=== PATIENT | male | born 1995 | race Caucasian/White ===

== ENCOUNTER → 2018-11-20 18:52 | Emergency (ER) | payer OTHER ==
--- NOTE | 2018-11-20 19:39 | ED ---
Upper Extremity Pain - HPI Summary HPI Summary: 23 year old male presents to the emergency department for pain in his left 4th digit. Pt was rock climbing an hour prior to arrival when her heard a "pop" in his finger. He states his pain is dull and achy at 1-2/10. Pt is using ice to help with the pain. He denies any loss of ROM, swelling, redness, numbness, and bleeding. - History of Current Complaint Chief Complaint: EDExtremityUpper Stated Complaint: INJURED MY FINGER PER PT Time Seen by Provider: 11/20/18 19:24 Hx Obtained From: Patient - Allergies/Home Medications Allergies/Adverse Reactions: Allergies Allergy/AdvReac Type Severity Reaction Status Date / Time No Known Allergies Allergy Verified 11/20/18 18:57 PMH/Surg Hx/FS Hx/Imm Hx Previously Healthy: Yes Infectious Disease History: No Infectious Disease History: Denies: Traveled Outside the [place] in Last 30 Days - Family History Known Family History: Positive: Non-Contributory - Social History Occupation: Student Alcohol Use: Rare Hx Substance Use: No Smoking Status (MU): Never Smoked Tobacco Review of Systems Constitutional: Negative Negative: Fever, Chills Cardiovascular: Negative Negative: Palpitations, Chest Pain Respiratory: Negative Negative: Shortness Of Breath Gastrointestinal: Negative Negative: Abdominal Pain, Diarrhea, Nausea Negative: Arthralgia, Myalgia, Decreased ROM, Edema Skin: Negative Negative: Rash, Bruising Negative: Headache, Weakness, Paresthesia, Numbness All Other Systems Reviewed And Are Negative: Yes Physical Exam Triage Information Reviewed: Yes Vital Signs On Initial Exam: Initial Vitals Temp Pulse Resp BP Pulse Ox 97.3 F 68 18 134/81 98 11/20/18 18:55 11/20/18 18:55 11/20/18 18:55 11/20/18 18:55 11/20/18 18:55 Vital Signs Reviewed: Yes Appearance: Positive: Well-Appearing, No Pain Distress, Well-Nourished Skin: Positive: Warm, Skin Color Reflects Adequate Perfusion, Dry Head/Face: Positive: Normal Head/Face Inspection Eyes: Positive: Normal, EOMI ENT: Positive: Normal ENT inspection, Hearing grossly normal Respiratory/Lung Sounds: Positive: Clear to Auscultation, Breath Sounds Present Cardiovascular: Positive: Normal, RRR, Pulses are Symmetrical in both Upper and Lower Extremities Musculoskeletal: Positive: Strength/ROM Intact, Other - Tenderness and pain with resistence in left 4th proximal phalanx Neurological: Positive: Normal, Sensory/Motor Intact - Upper extremities bilaterally, Alert, Oriented to Person Place, Time Psychiatric: Positive: Normal, Affect/Mood Appropriate Diagnostics - Vital Signs Vital Signs Temp Pulse Resp BP Pulse Ox 11/20/18 18:55 97.3 F 68 18 134/81 98 - Laboratory Lab Statement: Any lab studies that have been ordered have been reviewed, and results considered in the medical decision making process. Course/Dx - Course Course Of Treatment: Pt presents with left ring finger pain after hearing a "pop " while rock climbing. He states he has mild pain but no loss of ROM, numbness, swelling, and bleeding. His exam reveals tenderness and increased pain with resistence on the left 4th proximal phalanx flexor tendon c/w A2 miriam injury. Pt instructed to apply ice frequently, take ibuprofen as needed for pain, and refrain from any activity that causes increased pain. He was referred to Dr. Orlando, hand surgeon, and hand physical therapy for further treatment. Pt to follow up with any new/worsening symptoms. Assessment/Plan: Patient was seen in conjunction with the physician librarian assistant student. All history, physical and medical decision-making represent my work. - Diagnoses Differential Diagnosis/HQI/PQRI: Positive: Contusion, Fracture (Closed), Strain , Sprain, Other - Tendon rupture, A2 miriam injury Provider Diagnoses: Other injury of flexor muscle, fascia and tendon of left ring finger at wrist and hand level, initial encounter Discharge - Sign-Out/Discharge Documenting (check all that apply): Patient Departure Patient Received Moderate/Deep Sedation with Procedure: No - Discharge Plan Condition: Improved Disposition: HOME Patient Education Materials: Tendon Rupture (ED) Referrals: [facility] [Provider Group] Ryan Keane MD [Medical Doctor] - Additional Instructions: You seem to have an A2 miriam injury in your left ring finger. Apply ice, use ibuprofen as needed for pain, and avoid any activity that causes discomfort to the finger. Follow up with Dr. Keane and hand physical therapy. Return with any new/worsening symptoms. - Billing Disposition and Condition Condition: IMPROVED Disposition: Home - Attestation Statements Document Initiated by Scribe: No
[2018-11-20 19:56] VITALS: BP 121/67
== END | disposition home or self-care (01) ==
LOC: ED 18:52
DX: S56.10 Unspecified injury of flexor muscle, fascia and tendon of other and unspecified finger at forearm level (principal); X58.XXXA Exposure to other specified factors, initial encounter; Y93.31 Activity, mountain climbing, rock climbing and wall climbing; Y92.9 Unspecified place or not applicable; Y99.8 Other external cause status
CPT/HCPCS: 99282

== ENCOUNTER 2019-09-15 22:17 | Inpatient (IN) | payer OTHER ==
[2019-09-15] MEDS ORDERED: Tetan/Diph/Pertus SYR(Tdap)* 0.5 ML SYR(BOOSTRIX) use SYR contains LATEX IM ONE (22:38)
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
[2019-09-15 23:00] LABS: ABS Eosinophils 0.1 10^3/ul (0-0.6); ABS Lymphocytes 1.5 10^3/ul (1.0-4.8); ABS Monocytes 0.6 10^3/ul (0-0.8); ABS Neutrophils 10.4 10^3/ul (1.5-7.7); Eosinophil % 0.5 %; Hematocrit 46 % (42-52); Hemoglobin 15.8 g/dL (14.0-18.0); Lymphocyte % 11.8 %; Mean Corpuscular HGB Conc 34 g/dL (31-36); Mean Corpuscular Hemoglobin 28 pg (27-31); Mean Corpuscular Volume 82 fL (80-94); Mean Platelet Volume 10.4 fL (7.4-10.4); Platelet Count 161 10^3/uL (150-450); Red Blood Count 5.62 10^6 /uL (4.18-5.48); Red Cell Distribution Width 13 % (10-15); White Blood Count 12.6 10^3/uL (3.5-10.8)
[2019-09-15 23:18] LABS: ALT 25 U/L (7-52); AST 22 U/L (13-39); Albumin 4.6 g/dL (3.2-5.2); Albumin/Globulin Ratio 1.8 (1-3); Alkaline Phosphatase 68 U/L (34-104); Anion Gap 7 mmol/L (2-11); BUN/Creatinine Ratio 10.2 (8-20); Blood Urea Nitrogen 9 mg/dL (6-24); CO2 Carbon Dioxide 27 mmol/L (22-32); Calcium 9.5 mg/dL (8.6-10.3); Chloride 105 mmol/L (101-111); EGFR African American 127.7 (>60); EGFR Non-African American 105.5 (>60); Globulin 2.5 g/dL (2-4); Glucose 131 mg/dL (70-100); Potassium 3.9 mmol/L (3.5-5.0); Sodium 139 mmol/L (135-145); Total Protein 7.1 g/dL (6.4-8.9)
[2019-09-15 23:27] LABS: Acetaminophen < 15 mcg/mL; Alcohol < 10 mg/dL (<10); Salicylate < 2.50 mg/dL (<30)
[2019-09-15 23:41] LABS: TSH (Thyroid Stimulating Horm) 1.76 mcIU/mL (0.34-5.60)
[2019-09-15] MEDS ORDERED: Iohexol 300* (CONTRAST) 10 ML SDV IV ONE (23:44)
[2019-09-16 00:09] LABS: Urine Benzodiazepine Screen None Detected (None Detect); Urine Opiates Screen None Detected (None Detect)
[2019-09-16 00:49] LABS: Urine Appearance Clear; Urine Bilirubin Negative (Negative); Urine Blood 1+ (Negative); Urine Color Straw; Urine Glucose Negative (Negative); Urine Ketones Negative (Negative); Urine Nitrite Negative (Negative); Urine Protein Negative (Negative); Urine Specific Gravity 1.006 (1.010-1.030); Urine Urobilinogen Negative (Negative)
[2019-09-16 00:51] LABS: Urine Bacteria Absent (Absent); Urine Red Blood Cell Trace(0-2/hpf) (Absent); Urine White Blood Cell Trace(0-5/hpf) (Absent)
[2019-09-16] MEDS ORDERED: Al Hydrox/Mg Hydrox/Simet LIQ* 30 ML UDC PO PRN (05:24)
[2019-09-16] MEDS ORDERED: Acetaminophen TAB* 325 MG PO PRN (05:24)
[2019-09-16] MEDS: Vitamin THERAPEUTIC TAB PO SCH (10:32)
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
[2019-09-16] MEDS: Escitalopram * 10 MG TAB PO SCH (16:31)
[2019-09-17 07:22] LABS: HDL Cholesterol 39.2 mg/dL
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
[2019-09-17] MEDS: Escitalopram * 10 MG TAB PO SCH (08:52)
[2019-09-17] MEDS: Vitamin THERAPEUTIC TAB PO SCH (08:52)
[2019-09-17] MEDS ORDERED: Influenza VAC *QUAD* 2019-20* 0.5 ML SYRINGE IM ONE (09:00)
--- NOTE | 2019-09-17 12:56 | PN ---
BSU: Group Therapy Note - Service Type Service Type: 10203 Group Psychotherapy - Cognitive Behavioral Group Therapy ( CBT):Patient was attentive and participatory in CBT programming this morning, and remained in good behavioral control. Patient expressed positive insights regarding relevant treatment interventions and goals.
--- NOTE | 2019-09-17 16:17 | PN ---
BSU: Group Therapy Note - Service Type Service Type: [id number] Group Psychotherapy - Medication Education Group: Patient attended group and presented with flat affect that did not vary with discussion. Although responsive to direct prompts to respond to questions, patient did not engage in spontaneous conversation.
--- NOTE | 2019-09-18 08:41 | PN ---
Subjective - Subjective Date of Service: 09/18/19 Service Type: 26406 Hosp care 35 min high complexity Subjective: Nursing Report: Patient was visible on unit, no behavioral incidents. Slept overnight. He is attending group activities. CC: "I spoke to my mother" Patient was seen and evaluated today. The patient reported he feels safe on the unit and is interacting with peers. He reported having adequate appetite and sleep. The patient reports attending day groups. Per nursing no behavioral issues or overnight events reported. Patient reported that he is tolerating medications without side effects. Patient plans to work on school work over the weekend and coming up with a safety plan and support person he can contact in times of need. He changed the wound dressing and denied complications pain, fever, nausea, chills. Patient felt reassured to learn that his brother also takes lexapro and had a good response from it. Objective - General Observations Appearance: Neat Appears Stated Age: Yes Stature: Tall Posture: Slumped Eye Contact: Average Behavior/Activity: Slowed - Interaction Observations Attitude Towards Examiner: Cooperative Stated Mood: Dysphoric Affect: Flat Speech Pattern/Tone: Quiet Volume Thought Process: Coherent Perception: WNL Thought Content: Self-Deprecatory Thought Process: Lethality: Passive Wish Hallucination Type: Denies Delusion Type: Denies - Cognitive Function Orientation: A&O x 4 Level of Consciousness: Awake Cognition: WNL - Medication Compliance Cooperative with Inpatient Medication Regimen: Yes - Group Participation Participates in Group Activities: Yes Assessment - Assessment Merits Inpatient Hospitalization: For Immediate Safety Clinical Impression: 24 year old male with a history of depression presented to the emergency department following a suicide attempt by stabbing himself in the abdomen with a knife and was admitted to the BSU at [facility]. Plan - Plan Treatment Plan: Name: RAEGAN ALEXANDER Birthdate: 1995 [id number] #Q30 minute observation with staff pass and computer access. # The patient requires psychiatric inpatient admission at this time to assure safety, receive treatment and work toward stabilization. # Collaboration with Automobile Bumper Straightener Charis Ahumada #Patient is high risk for suicide given most recent suicide attempt and given other suicide attempts in the past have gone without acute intervention or treatment #Goals before discharge include: Decrease and eliminate suicidal ideation # Continue Lexapro 20mg daily # Patient to work on creating a plan to avoid isolating himself from others in time of stress and identifying a safety support person # Patient plans to return to school following discharge Tentative Discharge: Next Continued Medication Management: Continue Outpt Medication Medications: Current Medications Acetaminophen (Tylenol Tab*) 650 mg PO Q4H PRN PRN Reason: PAIN or TEMP > 101 F Al Hydrox/Mg Hydrox/Simethicone (Maalox Plus*) 30 ml PO Q4H PRN PRN Reason: INDIGESTION Escitalopram Oxalate (Lexapro *) 20 mg PO DAILY [facility] Multivitamins (Theragran Tab*) 1 tab PO DAILY [facility] Last Admin: 09/17/19 08:52 Dose: 1 tab - Discharge Plan Discharge Plan: Inpatient Hospitalization
[2019-09-18] MEDS: Vitamin THERAPEUTIC TAB PO SCH (08:48)
[2019-09-18] MEDS: Escitalopram * 20 MG TABLET PO SCH (08:48)
[2019-09-19] MEDS: Vitamin THERAPEUTIC TAB PO SCH (09:23)
[2019-09-19] MEDS: Escitalopram * 20 MG TABLET PO SCH (09:23)
[2019-09-20] MEDS: Vitamin THERAPEUTIC TAB PO SCH (07:25)
[2019-09-20] MEDS: Escitalopram * 20 MG TABLET PO SCH (07:25)
--- NOTE | 2019-09-20 15:28 | PN ---
Subjective - Subjective Date of Service: 09/20/19 Subjective: Pravin endorses improving mood, passive wish and urges for sib, he contracts for safety, He complains of GI pain, bloating ad loose stools that he attributes to prescribed Lexapro. He comments that he has gotten a lot of school work done today. Per staff, he remains adherent to unit's routines. Objective - General Observations Appearance: Neat Appears Stated Age: Yes Stature: WNL Posture: WNL Eye Contact: Average Behavior/Activity: WNL - Interaction Observations Attitude Towards Examiner: Cooperative Stated Mood: Dysphoric Affect: Restricted Speech Pattern/Tone: Clear, Appropriate, Normal Volume Thought Process: Coherent Perception: WNL Thought Content: WNL Thought Process: Lethality: Passive Wish Hallucination Type: None Delusion Type: None - Cognitive Function Orientation: A&O x 4 Level of Consciousness: Alert Cognition: WNL Estimated Intelligence: Normal Judgment Within Normal Limits: Yes - Medication Compliance Cooperative with Inpatient Medication Regimen: Yes - Group Participation Participates in Group Activities: Yes Assessment - Assessment Merits Inpatient Hospitalization: For Ongoing Evaluation, Consolidate Improvements, For Discharge Planning Clinical Impression: 24 year old male with a history of depression presented to the emergency department following a suicide attempt by stabbing himself in the abdomen with a knife and was admitted to the BSU at [facility]. He is stabilizing in this structured setting. Plan - Plan Treatment Plan: Name: PRAVIN ALEXANDER Birthdate: 1995 [id number] #Q30 minute observation with staff pass and computer access. # The patient requires psychiatric inpatient admission at this time to assure safety, receive treatment and work toward stabilization. # Collaboration with Web Merchandiser Charis Ahumada #Patient is high risk for suicide given most recent suicide attempt and given other suicide attempts in the past have gone without acute intervention or treatment #Goals before discharge include: Decrease and eliminate suicidal ideation # Continue Lexapro 20mg daily # Patient to work on creating a plan to avoid isolating himself from others in time of stress and identifying a safety support person # Patient plans to return to school following discharge Tentative Discharge: Next Medications: Current Medications Acetaminophen (Tylenol Tab*) 650 mg PO Q4H PRN PRN Reason: PAIN or TEMP > 101 F Last Admin: 09/19/19 09:24 Dose: 650 mg Al Hydrox/Mg Hydrox/Simethicone (Maalox Plus*) 30 ml PO Q4H PRN PRN Reason: INDIGESTION Escitalopram Oxalate (Lexapro *) 20 mg PO DAILY [facility] Last Admin: 09/20/19 07:25 Dose: 20 mg Multivitamins (Theragran Tab*) 1 tab PO DAILY [facility] Last Admin: 09/20/19 07:25 Dose: 1 tab - Discharge Plan Discharge Plan: Outpatient Follow Up Outpatient Program: [facility]
--- NOTE | 2019-09-21 08:53 | PN ---
Subjective - Subjective Date of Service: 09/21/19 Service Type: 31326 Hosp care 35 min high complexity Subjective: Nursing Report: Patient was visible on unit, no behavioral incidents. Slept overnight. He is attending some group activities. CC: "I dont want to feel like a burden" Patient was seen and evaluated today. The patient reported that designating a person he can contact in times of stress makes him feel like a burden to others. He noted that the safety plans he created in the past failed and plans to make a safety plan and explain how it is different. 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 Patient reported that he learned in group that when he hurts himself that he hurts others that care about him. He reported having adequate appetite and sleep. The patient reports attending day groups. Per nursing no behavioral issues or overnight events reported. Patient reported that he is tolerating medications without side effects. Objective - General Observations Appearance: Neat Appears Stated Age: Yes Stature: Thin, Tall Posture: WNL Eye Contact: Average Behavior/Activity: Slowed - Interaction Observations Attitude Towards Examiner: Cooperative Stated Mood: Dysphoric Affect: Restricted Speech Pattern/Tone: Normal Volume Thought Process: Coherent Perception: WNL Thought Content: Self-Deprecatory Thought Process: Lethality: Passive Wish Hallucination Type: Denies Delusion Type: Denies - Cognitive Function Orientation: A&O x 4 Level of Consciousness: Awake - Medication Compliance Cooperative with Inpatient Medication Regimen: Yes - Group Participation Participates in Group Activities: Yes Assessment - Assessment Merits Inpatient Hospitalization: For Immediate Safety Clinical Impression: 24 year old male with a history of depression presented to the emergency department following a suicide attempt by stabbing himself in the abdomen with a knife and was admitted to the BSU at [facility]. He is stabilizing in this structured setting. Plan - Plan Treatment Plan: Name: RAEGAN ALEXANDER Birthdate: 1995 [id number] #Q30 minute observation with staff pass and computer access. # The patient requires psychiatric inpatient admission at this time to assure safety, receive treatment and work toward stabilization. # Collaboration with Furniture Decals Inspector Charis Ahumada #Patient is high risk for suicide given most recent suicide attempt and given other suicide attempts in the past have gone without acute intervention or treatment # Continue Lexapro 20mg daily # Start Wellbutrin 150mg daily # Patient plans to create safety plan and identify how his previous plan is different and the reasons why it failed # Patient to work on creating a plan to avoid isolating himself from others in time of stress and identifying steps # Patient has history of SIB to relieve tension # Patient plans to return to school following discharge #Goals before discharge include: Decrease and eliminate suicidal ideation Tentative Discharge: Next Continued Medication Management: Continue Outpt Medication Medications: Current Medications Acetaminophen (Tylenol Tab*) 650 mg PO Q4H PRN PRN Reason: PAIN or TEMP > 101 F Last Admin: 09/19/19 09:24 Dose: 650 mg Al Hydrox/Mg Hydrox/Simethicone (Maalox Plus*) 30 ml PO Q4H PRN PRN Reason: INDIGESTION Escitalopram Oxalate (Lexapro *) 20 mg PO DAILY [facility] Last Admin: 09/20/19 07:25 Dose: 20 mg Multivitamins (Theragran Tab*) 1 tab PO DAILY [facility] Last Admin: 09/20/19 07:25 Dose: 1 tab - Discharge Plan Discharge Plan: Inpatient Hospitalization Outpatient Program: Counseling/Psych Services at [place]
[2019-09-21] MEDS: Vitamin THERAPEUTIC TAB PO SCH (09:38)
[2019-09-21] MEDS: Escitalopram * 20 MG TABLET PO SCH (09:38)
[2019-09-21] MEDS: BuPROPion XL* 150 MG TAB.XL PO SCH (13:48)
[2019-09-22] MEDS: BuPROPion XL* 150 MG TAB.XL PO SCH (09:24)
[2019-09-22] MEDS: Escitalopram * 20 MG TABLET PO SCH (09:25)
[2019-09-22] MEDS: Vitamin THERAPEUTIC TAB PO SCH (09:25)
--- NOTE | 2019-09-22 09:56 | PN ---
Subjective - Subjective Date of Service: 09/22/19 Service Type: 34441 Hosp care 35 min high complexity Subjective: Nursing Report: Patient was visible on unit, no behavioral incidents. Slept overnight. He is attending group activities. CC: "I am okay" Patient was seen and evaluated today. The patient reported he felt uncomfortable about seeing fight between another peer on the unit. He reported having adequate appetite and sleep. The patient reports attending day groups. Per nursing no behavioral issues or overnight events reported. Patient reported attempting to masturbate and had a delayed orgasm after taking medication. Objective - General Observations Appearance: Neat Appears Stated Age: Yes Stature: WNL Posture: WNL Eye Contact: Average Behavior/Activity: WNL - Interaction Observations Attitude Towards Examiner: Cooperative Stated Mood: Dysphoric Affect: Restricted Speech Pattern/Tone: Appropriate Thought Process: Coherent Perception: WNL Thought Content: Self-Deprecatory Hallucination Type: None Delusion Type: None - Cognitive Function Orientation: A&O x 4 Level of Consciousness: Awake - Medication Compliance Cooperative with Inpatient Medication Regimen: Yes - Group Participation Participates in Group Activities: Yes Assessment - Assessment Merits Inpatient Hospitalization: For Immediate Safety Clinical Impression: 24 year old male with a history of depression presented to the emergency department following a suicide attempt by stabbing himself in the abdomen with a knife and was admitted to the BSU at [facility]. He is stabilizing in this structured setting. Plan - Plan Treatment Plan: Name: RAEGAN ALEXANDER Birthdate: 1995 [id number] #Q30 minute observation with staff pass and computer access. # The patient requires psychiatric inpatient admission at this time to assure safety, receive treatment and work toward stabilization. # Collaboration with Top Installer Charis Ahumada #Patient to be seen weekly at [facility] # Continue Lexapro 20mg daily # Continue Wellbutrin 150mg daily # Patient has created safety plan and steps to take to ensure safety in times of a crisis # Patient has history of SIB to relieve tension # Patient plans to return to school following discharge #Goals before discharge include: Decrease and eliminate suicidal ideation Tentative Discharge: Saturday Continued Medication Management: Continue Outpt Medication Medications: Current Medications Acetaminophen (Tylenol Tab*) 650 mg PO Q4H PRN PRN Reason: PAIN or TEMP > 101 F Last Admin: 09/19/19 09:24 Dose: 650 mg Al Hydrox/Mg Hydrox/Simethicone (Maalox Plus*) 30 ml PO Q4H PRN PRN Reason: INDIGESTION Bupropion HCl (Wellbutrin Xl *) 150 mg PO DAILY [facility] Last Admin: 09/22/19 09:24 Dose: 150 mg Escitalopram Oxalate (Lexapro *) 20 mg PO DAILY [facility] Last Admin: 09/22/19 09:25 Dose: 20 mg Multivitamins (Theragran Tab*) 1 tab PO DAILY [facility] Last Admin: 09/22/19 09:25 Dose: 1 tab - Discharge Plan Discharge Plan: Inpatient Hospitalization
--- NOTE | 2019-09-22 11:38 | PN ---
BSU: Group Therapy Note - Service Type Service Type: [id number] Group Psychotherapy - Cognitive Behavioral Group Therapy ( CBT):Patient was attentive and participatory in CBT programming this morning, and remained in good behavioral control. Patient expressed positive insights regarding relevant treatment interventions and goals.
[2019-09-23] MEDS: Vitamin THERAPEUTIC TAB PO SCH (08:52)
[2019-09-23] MEDS: BuPROPion XL* 150 MG TAB.XL PO SCH (08:52)
[2019-09-23] MEDS: Escitalopram * 20 MG TABLET PO SCH (08:52)
--- NOTE | 2019-09-23 09:53 | DS ---
Subjective - Subjective Service Types: [address] [facility] over 30 min Discharge Date: 09/23/19 Subjective: CC: " I am better" Patient looks forward to rock climbing and drawing. Patient wants to live for others. The patient was seen and evaluated before discharge today. The patient reported having adequate appetite and sleep. The patient reported participating in some of the day groups. Per nursing no behavioral issues or overnight events reported. Patient reported tolerating medications without side effects. Justification for admission: Immediate Safety. CC " I am sorry for being here" The patient was brought to [facility] by EMS after he called the suicide hotline following stabbing himself in the abdomen with a knife. He was unable to identify current stressors but noted that he felt bad about himself and remembers feeling guilty because he interrupted a colleague that was talking to someone else. He apologizes for being in the hospital. He denied access to firearms or stockpiles of medications. Patient reported feeling that there is no point in living and is unable to experience pleasure from enjoyable activities. He reported no recent changes in sleep and reported having a diminished appetite. The patient denied homicidal ideation intent or plan. The patient denied auditory and/ or visual hallucinations. Depression Reported feeling depressed and having diminished interests which were found to be enjoyable in the past. He reported feeling empty inside with feelings of hopelessness , and worthlessness. He denied interruption of sleep. He reported loss of energy and lack of motivation to complete tasks. He reported overwhelming feelings of guilt and decreased concentration. He believes that he would be better off . Anxiety Denied having symptoms of anxiety such as having times where heart feels that it is beating out of chest , sweaty palms, or shallow breathing. Denied having uncomfortable or intrusive thoughts. Denied feeling restless, high strung, or worrying too much most of the time. Bipolar Denied symptoms of husam such as having many ideas at once. Denied increased talkativeness where no one can interrupt. Denied feeling irritable most of the time while having an persistent abundance of energy most of the day without the use of energy drinks, stimulants, or recreational drug use. Denied an increase in intensity in goal directed activities. Denied having the decreased need to sleep for days , having prolonged elevated mood , or feeling on top of the world. Denied impulsive risky sexual encounters. Denied spending money recklessly , going on spending sprees wiping out savings. Denied impulsively traveling out of town or country, having super lincoln, and unrealistic wealth or fame. Psychosis Does not endorse hearing things that other people do not hear or seeing things other people do not see. Denied feeling that TV is making references. Denied feeling that people are spying , following , or reading their thoughts. Phobias: Patient denied having excessive fear of a particular thing or situation. Eating disorders: Patient denied having excessive eating habits or feelings of guilt after eating. Denied repeated episodes of self induced vomiting after eating. PTSD Denied flashbacks, nightmares and avoidance of a prior traumatic event. PAST PSYCHIATRIC HISTORY: Prior Diagnosis : Major Depressive Disorder, ADHD ( unconfirmed Dx in February 2019 ) History of past Psychiatric Hospitalizations: No prior psychiatric admission. History of past suicide/homicide attempts : 2 past suicide attempts which including cutting and hanging himself, history of self injurious behavior. Denied history of violence. 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 Patient has been seen by [facility] on a couple of occasions and was last seen in June. Medications: Past trials of medications include vyvanse 20mg daily started in February 2019 by Nurse practitioner. Guardianship: None. FAMILY HISTORY: - Suicide: Denied family history of suicide. - Mental illness: Mother has a history of depression and anxiety - Substance abuse: Denied substance abuse among family members. SUBSTANCE ABUSE HISTORY: - EtOH: Denied recent use. No associated legal issues, blackouts, seizures, DTs or past hospitalizations due to alcohol. - Tobacco: Denied - Cannabis: Denied - Heroin: Denied - Cocaine: Denied - Substance abuse treatment: Denied past substance abuse treatment SOCIAL HISTORY: - Denied a history of childhood physical and or sexual abuse although he reported that his father was very critical and made him feel bad about himself. He grew up in [facility] and identifies as Asexual. His parents when he was 5 years old and he was mostly raised by his mother. His support system in [place] includes friends that he knew from undergraduate school in [place] that now live in [place]. 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 No history of special education. - Living situation: Currently lives in [facility] - Employment history: Student at [employer] - Relationship: Single and has no children. - Legal history: Denied - service history: Denied PAST MEDICAL HISTORY: History of pneumothorax. Denied heart disease, diabetes, cancer. - Allergies: Denied drug or other allergies. Physical Exam: Please see ED note Mental Status Exam on Admission APPEARANCE : 24 year old who appears stated age. Patient is not malodourous, and appears disheveled. BEHAVIOR: Cooperative , calm EYE CONTACT: Fair PSYCHOMOTOR ACTIVITY: No psychomotor agitation or retardation. MOVEMENTS: No abnormal movements observed. SPEECH : Normal rate, rhythm, volume and tone. MOOD : "Depressed" AFFECT : apathetic Range is flat Mood Incongruent THOUGHT PROCESS: Formulated and organized in a logical, linear goal directed manner. No flight of ideas, neologism (made up words) , perseveration , tangential , loose associations , or circumstantiality, Poverty of thought, thought blocking THOUGHT CONTENT: no delusions, obsessions, phobias or preoccupations. PERCEPTION: No current auditory or visual hallucinations. Doesnt appear to be responding to internal cues. No evidence of depersonalization , de-realization, or illusions SUICIDALITY suicidal ideation with recent attempt HOMICIDALITY Denied homicidal ideation, intent or plan. Insight/judgment: Poor insight and judgment ORIENTATION: Oriented to self, location, and time. Diagnosis on Admission: Major depressive disorder severe. Diagnosis on Discharge: Major depressive disorder, in partial remission. Condition at the time of discharge: At the time of discharge patient showed improvement of sleep and appetite. The patient was not a danger to self or others. The patient denied suicidal ideation, intent or plan. The patient denied homicidal targets, ideation, intent or plan. This patient participated in psychosocial rehabilitation and gained some insight into problems. The patient gained insight into mental illness, triggers, and treatment. The patient took medication as prescribed. The patient denied side effects of medication and objective signs of side effects were not evident. Therapy Resources were offered to the patient. Patient was given a supply of prescriptions at the time of discharge. The patient plans to attend follow up care with the follow up arrangements that were discussed and put in place. Patient was asked to keep appointments as scheduled, take medication as prescribed, have routine follow up care with their primary care physician and refrain from any use of alcohol or drugs. Objective - General Observations Appearance: Neat Appears Stated Age: Yes Stature: WNL Posture: WNL Eye Contact: Average Behavior/Activity: WNL - Interaction Observations Attitude Towards Examiner: Cooperative Stated Mood: Euthymic Affect: Full Speech Pattern/Tone: Clear, Appropriate, Normal Volume Thought Process: Coherent Perception: WNL Thought Content: WNL Hallucination Type: None Delusion Type: None - Cognitive Function Orientation: A&O x 4 Level of Consciousness: Awake Cognition: WNL - Medication Compliance Cooperative with Inpatient Medication Regimen: Yes - Group Participation Participates in Group Activities: Yes Treatment Course & Assessment Clinical Course & Impression: Hospital course part A: 24 year old male with a history of depression presented to the emergency department following a suicide attempt by stabbing himself in the abdomen with a knife and was admitted to the [facility] at [facility]. Hospital course part B: Labs ordered included CBC, CMP, UDS, TSH, HBA1c, TSH, Toxicology screen, Urine analysis, and lipid profile. Labs were reviewed and vital signs were monitored during the course of admission. The patient was admitted to the adult behavioral unit and placed on 15 minute check for safety. At a later time the patient was on Q30 minute observation and staff pass privileges. With those limits being extended, patient was safe on all checks and there were no occurrence of behavioral incidents. The patient did well on the unit and went to groups. The patient maximized the therapeutic value offered by the inpatient psychiatric care environment. Interacted with peers had adequate sleep and regular appetite. Group therapy and services were offered. The risks, benefits, and alternative treatment options were discussed as well as of the risks of refusing treatment. Treatment associated risks discussed. After this discussion the patient made an acknowledgement of this understanding. Follow up care appointments were put in place. HBA1c, glucose, and lipid panel was ordered and reviewed to monitor metabolic status. Monitoring for metabolic changes was reviewed and it was emphasized to the patient to be continued to be monitored upon discharge. The patient was informed not to abruptly stop or start new medications before consulting with a medical professional. Improvements shown from the time of admission include: Improved affect, sleep and decrease in anxiety. The patient expressed readiness for discharge home. The patient presents with a broader range of affect, and the absence of depressed mood, delusions, perceptual disturbance. The patient denied suicidal and or homicidal ideation intent or plan. Overall, the patient responded well to inpatient treatment as evidenced by their report of strengthening of coping mechanisms, reduced distress, and more positive outlook on circumstances. Of note there was an improvement of recognizing how emotional state can effect mood and behavior. Safety precautions were put in place which included involving the patient and their family to closely monitor for changes in mental state. In addition, implementing follow up care, screening for the need to remove/securing firearms , weapons and stockpile of medications. Patient/ family instructed to immediately call 911 should any safety concerns arise. The patient was advised of the 24 hour / 7 days a week availability of the emergency room and to call 911 in the event of an emergency such as being suicidal and/ or homicidal. The patient was informed of the contact information for [facility], Suicide Prevention and Crisis Services, National Suicide Prevention Lifeline, [facility], Alcoholics Anonymous, and [facility]. Medications started included lexapro 20mg po daily, and wellbutrin 150mg po daily. The patient experienced some sexual side effects (delayed orgasm) from lexapro and wellbutrin was used to rapidly augment depressive features such as low energy and flat affect. The patients family was contacted. The patient is eager for discharge and is in agreement with the discharge plan and can receive care in the less restrictive outpatient setting. They were advised on how the days following discharge can be a vulnerable period and to look out for warning signs associated with decompensation and progression of mental illness. They were notified of the resources available in the event these situations arise. Patient was not assaultive or a behavioral problem during the course of admission. The patient showed good hygiene and was able to carry out activities of daily living. Patient will be discharged to live at home. Follow up appointment at [facility] Patient informed of follow up appointment times. See more details for follow up care in the discharge plan. Risk factors were mitigated by establishing the patients baseline with close contacts. [facility] was contacted and notified that the patient would benefit from close follow up care and a plan was put in place to have more frequent follow up care. Implemented precautionary safety measures by confirming no stockpiles of medications and no access to firearms, provided mental health treatment, stabilization of depressive symptoms, provided resources to outpatient services, as well as provided a supportive care environment and therapy resources during the course of hospitalization. A safety plan was created by the patient and this was reviewed with the patient and treatment team. The patient verbalized the steps they would take to ensure their safety in the event of a crisis or they begin to show signs that they have identified when they are not doing well. Patient removed all hooks and hanging points from his room. Risk factors: Male, , single, history of depression, recent suicide attempt, history of self-injurious behavior, recent hospitalization. Protective factors: At discharge patient did not have suicidal and or homicidal ideation, intent or plan. Has social/ family support system. No history of service. Currently no feelings of hopelessness, not in an occupation of social isolation, doesnt have multiple medical conditions, no family history of suicide, doesnt have access to firearms. Doesnt have command hallucinations and or psychotic features at this time. No current substance abuse. No current alcohol abuse. Not an anniversary of a loss of a loved one. The patient did not have a recent stressful life event. The patient is currently future orientated. Patient engaged in treatment and compliant with medication. No barriers to seek mental health treatment. Not incarcerated. Not middle or older age. The patient did not have a cultural belief that supported suicide. Patient did not experience a loss of someone close that recently by suicide. Sodium 139 mmol/L (135-145) 09/15/19 22:49 Potassium 3.9 mmol/L (3.5-5.0) 09/15/19 22:49 BUN 9 mg/dL (6-24) 09/15/19 22:49 Creatinine 0.88 mg/dL (0.67-1.17) 09/15/19 22:49 Hemoglobin A1c 5.3 % (4.0-5.6) 09/17/19 06:25 Calcium 9.5 mg/dL (8.6-10.3) 09/15/19 22:49 AST 22 U/L (13-39) 09/15/19 22:49 ALT 25 U/L (7-52) 09/15/19 22:49 Triglycerides 72 mg/dL 09/17/19 06:25 Cholesterol 132 mg/dL 09/17/19 06:25 LDL Cholesterol 78 mg/dL 09/17/19 06:25 Merits Inpatient Hospitalization: No Clear for Discharge: Adequate Clinical Respons Discharge Planning - Discharge Planning Discharge Plan: Outpatient Follow Up Outpatient Program: Counseling/Psych Services at [employer] Recommendations for Continuing Care: Medication Management Medications: Current Medications Acetaminophen (Tylenol Tab*) 650 mg PO Q4H PRN PRN Reason: PAIN or TEMP > 101 F Last Admin: 09/19/19 09:24 Dose: 650 mg Al Hydrox/Mg Hydrox/Simethicone (Maalox Plus*) 30 ml PO Q4H PRN PRN Reason: INDIGESTION Bupropion HCl (Wellbutrin Xl *) 150 mg PO DAILY [facility] Last Admin: 09/23/19 08:52 Dose: 150 mg Escitalopram Oxalate (Lexapro *) 20 mg PO DAILY [facility] Last Admin: 09/23/19 08:52 Dose: 20 mg Multivitamins (Theragran Tab*) 1 tab PO DAILY [facility] Last Admin: 09/23/19 08:52 Dose: 1 tab Discharge Planning: Prescriptions provided for discharge [x] Yes [] No Follow up care details as per social work arrangements. Patient response to discharge plan: [x] eager for discharge [] agreeable with discharge plan [] ambivalent about discharge [] disagrees with discharge today
[2019-09-23 10:01] VITALS: BP 121/66
== END 2019-09-23 14:15 | disposition home or self-care (01) | DRG 885 ==
LOC: ED 22:17 → BSU 09-16 04:30
PROVIDERS: ADMIT Psychiatry & Neurology Psychiatry; ATTEND Psychiatry & Neurology Psychiatry
PROC: GZHZZZZ Group Psychotherapy (ICD-10-PCS; principal; 2019-09-16)
PROC: 0HQ7XZZ Repair Abdomen Skin, External Approach (ICD-10-PCS; 2019-09-16)
DX: F32.4 Major depressive disorder, single episode, in partial remission (principal); S31.119A Laceration without foreign body of abdominal wall, unspecified quadrant without penetration into peritoneal cavity, initial encounter; F32.9 Major depressive disorder, single episode, unspecified; F41.9 Anxiety disorder, unspecified; X78.1XXA Intentional self-harm by knife, initial encounter; Y92.9 Unspecified place or not applicable; Z91.5 Personal history of self-harm
CPT/HCPCS: 36415; 74177; 80053; 80061; 80307; 80320; 80329; 81003; 81015; 83036; 84443; 85025; 87086; 90471; 90686; 90715; 90853; 99222; 99231; 99233; 99284; A9270-GY; G0480; Q9967

== ENCOUNTER 2019-11-18 11:41 | Inpatient (IN) ==
[2019-11-18] MEDS ORDERED: Al Hydrox/Mg Hydrox/Simet LIQ 30 ML UDC PO PRN (12:23)
[2019-11-18 12:35] LABS: ABS Basophils 0.1 10^3/ul (0-0.2); ABS Eosinophils 0.1 10^3/ul (0-0.6); ABS Lymphocytes 1.8 10^3/ul (1.0-4.8); ABS Monocytes 0.6 10^3/ul (0-0.8); Eosinophil % 1.3 %; Hematocrit 46 % (42-52); Hemoglobin 16.2 g/dL (14.0-18.0); Lymphocyte % 22.4 %; Mean Corpuscular HGB Conc 35 g/dL (31-36); Mean Corpuscular Hemoglobin 29 pg (27-31); Mean Corpuscular Volume 83 fL (80-94); Mean Platelet Volume 10.2 fL (7.4-10.4); Platelet Count 158 10^3/uL (150-450); Red Blood Count 5.55 10^6 /uL (4.18-5.48); Red Cell Distribution Width 13 % (10-15); White Blood Count 7.8 10^3/uL (3.5-10.8)
[2019-11-18 13:06] LABS: ALT 43 U/L (7-52); AST 27 U/L (13-39); Albumin 4.5 g/dL (3.2-5.2); Albumin/Globulin Ratio 1.7 (1-3); Alkaline Phosphatase 69 U/L (34-104); Anion Gap 6 mmol/L (2-11); BUN/Creatinine Ratio 10.6 (8-20); Blood Urea Nitrogen 11 mg/dL (6-24); CO2 Carbon Dioxide 30 mmol/L (22-32); Chloride 104 mmol/L (101-111); EGFR African American 105.3 (>60); Globulin 2.7 g/dL (2-4); Glucose 122 mg/dL (70-100); Potassium 4.1 mmol/L (3.5-5.0); Sodium 140 mmol/L (135-145); Total Protein 7.2 g/dL (6.4-8.9)
[2019-11-18] MEDS ORDERED: Iohexol 300 (CONTRAST) 10 ML SDV IV ONE (13:11)
[2019-11-18 13:25] LABS: Acetaminophen < 15 mcg/mL; Alcohol, S < 10 mg/dL (<10); Salicylate < 2.50 mg/dL (<30)
[2019-11-18 13:39] LABS: TSH (Thyroid Stimulating Horm) 3.44 mcIU/mL (0.34-5.60)
[2019-11-18 15:49] LABS: Urine Appearance Clear; Urine Bilirubin Negative (Negative); Urine Blood Negative (Negative); Urine Color Yellow; Urine Glucose Negative (Negative); Urine Ketones Negative (Negative); Urine Nitrite Negative (Negative); Urine Protein Negative (Negative); Urine Specific Gravity 1.011 (1.010-1.030); Urine Urobilinogen Negative (Negative)
[2019-11-18 19:20] LABS: Urine Benzodiazepine Screen None Detected (None Detect); Urine Opiates Screen None Detected (None Detect)
[2019-11-19 08:11] LABS: HDL Cholesterol 38.5 mg/dL
[2019-11-24 08:00] VITALS: BP 117/69
== END 2019-11-24 13:00 | disposition home or self-care (01) | DRG 885 ==
LOC: ED 11:41 → BSU 12:23
PROVIDERS: ADMIT Psychiatry & Neurology Psychiatry; ATTEND Psychiatry & Neurology Psychiatry

== ENCOUNTER 2020-04-19 15:37 | Inpatient (IN) ==
[2020-04-19 16:17] LABS: ABS Basophils 0.1 10^3/ul (0-0.2); ABS Lymphocytes 1.1 10^3/ul (1.0-4.8); ABS Monocytes 1.1 10^3/ul (0-0.8); ABS Neutrophils 11.8 10^3/ul (1.5-7.7); Eosinophil % 0.2 %; Hematocrit 44 % (42-52); Hemoglobin 14.8 g/dL (14.0-18.0); Lymphocyte % 8.1 %; Mean Corpuscular HGB Conc 34 g/dL (31-36); Mean Corpuscular Hemoglobin 28 pg (27-31); Mean Corpuscular Volume 82 fL (80-94); Mean Platelet Volume 10.1 fL (7.4-10.4); Platelet Count 161 10^3/uL (150-450); Red Blood Count 5.34 10^6 /uL (4.18-5.48); Red Cell Distribution Width 13 % (10-15); White Blood Count 14.1 10^3/uL (3.5-10.8)
[2020-04-19 16:33] LABS: ALT 19 U/L (7-52); AST 14 U/L (13-39); Albumin 4.1 g/dL (3.2-5.2); Albumin/Globulin Ratio 1.9 (1-3); Alkaline Phosphatase 58 U/L (34-104); Anion Gap 6 mmol/L (2-11); BUN/Creatinine Ratio 11.2 (8-20); Blood Urea Nitrogen 10 mg/dL (6-24); CO2 Carbon Dioxide 26 mmol/L (22-32); Calcium 8.7 mg/dL (8.6-10.3); Chloride 103 mmol/L (101-111); EGFR Non-African American 104.2 (>60); Globulin 2.2 g/dL (2-4); Glucose 126 mg/dL (70-100); Potassium 3.9 mmol/L (3.5-5.0); Sodium 135 mmol/L (135-145); Total Protein 6.3 g/dL (6.4-8.9)
[2020-04-19 16:42] LABS: Acetaminophen < 15 mcg/mL; Alcohol, S < 10 mg/dL (<10); Salicylate < 2.50 mg/dL (<30)
[2020-04-19] MEDS ORDERED: Iohexol 300 (CONTRAST) 10 ML SDV IV ONE (17:05)
[2020-04-19 17:35] LABS: Urine Appearance Clear; Urine Bilirubin Negative (Negative); Urine Blood 1+ (Negative); Urine Color Yellow; Urine Glucose Negative (Negative); Urine Ketones Negative (Negative); Urine Nitrite Negative (Negative); Urine Protein Negative (Negative); Urine Specific Gravity 1.009 (1.010-1.030); Urine Urobilinogen Negative (Negative)
[2020-04-19 17:38] LABS: Urine Bacteria Absent (Absent); Urine Red Blood Cell Trace(0-2/hpf) (Absent); Urine White Blood Cell Absent (Absent)
[2020-04-19 17:50] LABS: Urine Benzodiazepine Screen None Detected (None Detect); Urine Cannabinoids Screen None Detected (None Detect); Urine Opiates Screen None Detected (None Detect)
[2020-04-19] MEDS ORDERED: Al Hydrox/Mg Hydrox/Simet LIQ 30 ML UDC PO PRN (21:36)
[2020-04-20] MEDS: Vitamin THERAPEUTIC TAB PO SCH (11:02)
[2020-04-21] MEDS ORDERED: Influenza VAC *QUAD* 2020-21* 0.5 ML SYRINGE IM ONE (09:00)
[2020-04-21] MEDS: Vitamin THERAPEUTIC TAB PO SCH (10:53)
[2020-04-21] MEDS: Lisdexamfetamine 10 mg CAP(NF) PO SCH (12:23)
[2020-04-22] MEDS: Vitamin THERAPEUTIC TAB PO SCH (09:45)
[2020-04-22] MEDS: Lisdexamfetamine 10 mg CAP(NF) PO SCH (09:45)
[2020-04-23 07:59] LABS: HDL Cholesterol 26.3 mg/dL
[2020-04-23] MEDS: CMCS: Lisdexamfetamine 10 mg CAP(NF) PO SCH (10:19)
[2020-04-23] MEDS: Vitamin THERAPEUTIC TAB PO SCH (10:19)
[2020-04-24] MEDS: CMCS: Lisdexamfetamine 10 mg CAP(NF) PO SCH (10:05)
[2020-04-24] MEDS: Vitamin THERAPEUTIC TAB PO SCH (10:05)
[2020-04-25] MEDS: CMCS: Lisdexamfetamine 10 mg CAP(NF) PO SCH (09:18)
[2020-04-25] MEDS: Vitamin THERAPEUTIC TAB PO SCH (09:18)
[2020-04-26] MEDS: CMCS: Lisdexamfetamine 10 mg CAP(NF) PO SCH (09:13)
[2020-04-26] MEDS: Vitamin THERAPEUTIC TAB PO SCH (09:13)
[2020-04-27] MEDS: CMCS: Lisdexamfetamine 10 mg CAP(NF) PO SCH (09:11)
[2020-04-27] MEDS: Vitamin THERAPEUTIC TAB PO SCH (09:11)
[2020-04-28] MEDS ORDERED: Lisdexamfetamine 10 mg CAP(NF) PO SCH (09:00)
[2020-04-28] MEDS: Vitamin THERAPEUTIC TAB PO SCH (09:11)
[2020-04-28 10:34] VITALS: BP 118/62
== END 2020-04-28 13:11 | disposition home or self-care (01) | DRG 885 ==
LOC: ED 15:37 → BSU 21:23
PROVIDERS: ADMIT Psychiatry & Neurology Psychiatry; ATTEND Psychiatry & Neurology Psychiatry